=== PATIENT | male | born 1995 | race African-American/Black ===

== ENCOUNTER 2020-03-16 13:50 | Emergency (ER) | payer OTHER, SELFPAY ==
[2020-03-16 14:08] VITALS: BP 122/80; PULSE 101; RESP 20; TEMP 37.3; O2SAT 100
--- NOTE | 2020-03-16 14:24 | ED.URI ---
HPI - URI/Sore Throat General Chief Complaint: Upper Respiratory Infection Stated Complaint: sore throat Time Seen by Provider: 03/16/20 14:24 Source: patient and RN notes reviewed Mode of arrival: ambulatory Limitations: no limitations History of Present Illness HPI Narrative: This is a 24 years old male presented to the office for evaluation of sore throat since this morning. Report feeling chilled however he did not take his temp. he also reported a little cough. Denies sick contact. No treatment prior to arrival. Related Data Allergies Allergy/AdvReac Type Severity Reaction Status Date / Time PLANTS Allergy Mild Blister Uncoded 03/16/20 14:13 Review of Systems Review of Systems: Narrative: CONSTITUTIONAL: Denies fever. Reports chills, sweats. EYES: Denies visual changes, redness, discharge. ENT: Denies rhinorrhea, congestion,otalgia. CARDIOVASCULAR: Denies chest pain, palpitation, edema. RESPIRATORY: Denies dyspnea, wheezing GASTROINTESTINAL: Denies abdominal pain, nausea, vomiting, diarrhea. SKIN: Denies rash MUSCULOSKELETAL: Denies acute back pain NEUROLOGIC: Denies lightheaded All other systems reviewed are negative, except as documented in HPI. PMFSH Comments At time of signature, I agree with nursing past medical, surgical, social and family history. There is no relevant family history pertinent to the presenting complaint. Exam Narrative: Exam Narrative: GENERAL: This is a well-nourished, well-developed patient, in no apparent distress. EARS: External ears normal, auditory canals clear and without drainage, TMs normal without perforation. Hearing grossly intact. NOSE: External nose normal with no obvious nasal discharge, nares without redness, no rhinorrhea. THROAT: Mucous membranes moist, posterior pharynx erythema and edematous with exduative NECK: Neck supple, non-tender without lymphadenopathy, masses or thyromegaly. CARDIOVASCULAR: Regular rate and rhythm without murmurs, gallops, or rubs. RESPIRATORY: Clear to auscultation. Breath sounds equal bilaterally. No wheezes, rales, or rhonchi. GASTROINTESTINAL: Abdomen soft, non-tender, nondistended. Bowel sounds are active. No hepato-splenomegaly, or palpable masses. No guarding. SKIN: warm, intact with no suspicious lesions or rash, good texture and turgor. NEURO: awake, alert, and oriented to person, place and time. There were no obvious focal neurologic abnormalities. Steady gait Natacha Coma Scale Eye Opening: Spontaneous 4 Natacha Coma Scale Motor: Obeys Commands 6 Erie Coma Scale Verbal: Oriented 5 Course Vital Signs Vital signs: Vital Signs Temperature 99.1 F 03/16/20 14:08 Pulse Rate 101 H 03/16/20 14:08 Respiratory Rate 20 03/16/20 14:08 Blood Pressure 122/80 03/16/20 14:08 Pulse Oximetry 100 03/16/20 14:08 Temperature 99.1 F 03/16/20 14:08 Pulse Rate 101 H 03/16/20 14:08 Respiratory Rate 20 03/16/20 14:08 Blood Pressure 122/80 03/16/20 14:08 Pulse Oximetry 100 03/16/20 14:08 MDM - URI/Sore Throat MDM Narrative Medical decision making narrative: Discharge instructions reviewed with patient, as well as provided in writing per nursing staff. The instructions also include specific and strict return/GO TO THE ER as well as f/u information. All questions have been answered, and the patient deny any further questions with discharge and discharge plan. Differential Diagnosis Differential diagnosis: Likely upper respiratory infection, otitis media, sinusitis, viral infection, bronchitis, influenza and pharyngitis Lab Data Attestation: I reviewed the patient's lab results. Labs: Strep Screen Positive Group A Strep *(Reference Range: Negative)* Critical Care Time Critical Care Time Critical Care Time: No Discharge Plan Discharge Clinical Impression: Pharyngitis Patient Disposition: Home, Self-Care Condition: Stable Instructions: Antibiotic Form, Strep Throat (D
== END 2020-03-16 14:34 | disposition home or self-care (01) ==
PROVIDERS: Emergency Provider Nurse Practitioner
DX: J02.9 Acute pharyngitis, unspecified (principal)
CPT/HCPCS: 87880; 99203; G0463